=== PATIENT | male | born 1950 | race Asian ===

== ENCOUNTER → 2019-05-24 | Outpatient (CLI) | payer MEDICARE ==
[2019-05-24 12:35] LABS: MEAN CORP HGB 30.5 pg (26-34); RED CELL DISTRIBUTION WIDTH 13.6 % (11.5-14.5)
[2019-05-24 13:02] LABS: ALANINE AMINOTRANSFERASE(ML) 18 U/L (12-78); ALKALINE PHOSPHATASE 87 U/L (50-136); ASPARTATE AMINO TRANSFERASE 17 U/L (0-35); CALCIUM 8.4 mg/dL (8.4-10.5); CARBON DIOXIDE 28.7 mmol/L (20.0-32); CHOLESTEROL 155 mg/dL (120-240); GLUCOSE 100 mg/dL (70-110); HDL CHOLESTEROL 47 mg/dL (32-96)
== END | disposition home or self-care (01) ==
LOC: LAB 12:15
PROVIDERS: ATTEND Specialist
DX: E78.5 Hyperlipidemia, unspecified (principal); E55.9 Vitamin D deficiency, unspecified
CPT/HCPCS: 36415; 80053; 80061; 82306; 84403; 84443; 85027; 86140

== ENCOUNTER 2024-09-24 16:43 | Observation (INO) | payer MEDICARE ==
[~2024-09-24] VITALS: Ht 167.6 cm; Wt 93.4 kg
[2024-09-24] VITALS (27 sets, daily range): BP systolic 78–141; BP diastolic 35–82; PULSE 51–90; RESP 10–71; TEMP 97–98.6; O2SAT 94–98
[2024-09-24] MEDS ORDERED: NITRO-DUR 0.2MG PATCH TD ONE (16:47)
[2024-09-24] MEDS ORDERED: RANEXA PO ONE (16:47)
[2024-09-24] MEDS ORDERED: ASPIRIN ONE (16:47)
[2024-09-24] MEDS ORDERED: NS 1000ML 1,000 ML ONE (16:51)
[2024-09-24] MEDS ORDERED: COREG ONE (16:51)
[2024-09-24] MEDS: ASPIRIN PO STA (16:55)
[2024-09-24] MEDS: NS 1000ML 1,000 ML IV STA (16:55)
[2024-09-24] MEDS: COREG PO STA (16:57)
[2024-09-24] MEDS: NITRO-DUR 0.2MG PATCH TD STA (16:59)
[2024-09-24] MEDS: RANEXA PO STA (17:00)
[2024-09-24] MEDS: PROTONIX IV IV STA (17:01)
[2024-09-24] MEDS ORDERED: NITROGLYCERIN 25MG/D5W 250ML 250 ML IV ONE (17:06)
[2024-09-24] MEDS ORDERED: HEPARIN ONE ×2 (17:06→17:35)
[2024-09-24] MEDS ORDERED: SUBLIMAZE 100MCG/2ML ONE (17:17)
[2024-09-24] MEDS ORDERED: VERSED ONE ×2 (17:18→18:02)
[2024-09-24] MEDS ORDERED: BRILINTA ONE (17:37)
[2024-09-24] MEDS ORDERED: ADENOSINE IV ONE (18:03)
[2024-09-24] MEDS: NS 1000ML/KCL 20MEQ 1,000 ML IV SCH (19:30)
[2024-09-24] MEDS ORDERED: NITROSTAT SL PRN (19:30)
[2024-09-24] MEDS ORDERED: ATIVAN IV PRN (19:30)
[2024-09-24] MEDS: RANEXA PO SCH (21:00)
[2024-09-24] MEDS: BRILINTA PO SCH (21:00)
[2024-09-24] MEDS: COREG PO SCH (21:00)
[2024-09-24] MEDS: CRESTOR PO SCH (21:00)
[2024-09-24] MEDS: NS 500ML 500 ML IV ONE (22:22)
[2024-09-24] MEDS: OFIRMEV 100 ML IV PRN (22:27)
[2024-09-25] VITALS (59 sets, daily range): BP systolic 71–137; BP diastolic 29–65; PULSE 46–69; RESP 10–21; TEMP 97.5–98; O2SAT 94–99
[2024-09-25] MEDS: NS 500ML 500 ML IV ONE (01:30)
[2024-09-25 01:49] LABS: BASOPHIL % 0.4 % (0.2-1.2); EOSINOPHIL # 0.2 10^3/uL (0.0-0.2); EOSINOPHIL % 4.3 % (0.0-5.0); HEMATOCRIT(ML) 33.4 % (37.0-53.0); LYMPHOCYTES # 2.49 10^3/uL1 (1.0-4.8); LYMPHOCYTES % 44.5 % (24.0-44.0); MEAN CORP HGB 30.2 pg (26-34); MEAN CORP HGB CONCENTRATION 34.4 g/dL (33-36.5); MEAN CORP VOLUME 87.7 fL (78-100); MONOCYTES # 0.7 10^3/uL (0.3-0.8); MONOCYTES % 11.8 % (5.0-12.0); NEUTROPHIL # 2.2 10^3/uL (1.8-7.7); PLATELET COUNT 199 10^3/uL (150-400); RED BLOOD CELL 3.81 10^6/uL (4.50-5.90); RED CELL DISTRIBUTION WIDTH 13.5 % (11.5-14.5); WHITE BLOOD CELL 5.6 10^3/uL (4.5-11.0)
[2024-09-25 01:56] LABS: +ADD MANUAL DIFF(NO CHRG) NO; HEMOGLOBIN 11.5 g/dL (13.9-16.3)
[2024-09-25 01:58] LABS: ALBUMIN(ML) 2.7 g/dL (3.4-5.0); ALBUMIN/GLOBULIN RATIO 0.964; ANION GAP 9.9; BUN/CREATININE RATIO 12.87 (10.0-20.0); CALCIUM 7.4 mg/dL (8.4-10.5); CARBON DIOXIDE 26.4 mmol/L (20.0-32); CREATININE SERUM 1.01 mg/dL (0.59-1.40); EST GFR, NON-AA 72.4 (>/=60); POTASSIUM 4.3 mmol/L (3.6-5.2)
[2024-09-25] MEDS: PROTONIX PO SCH (09:08)
[2024-09-25] MEDS: ASPIRIN EC PO SCH (09:08)
[2024-09-25 09:23] LABS: +ADD MANUAL DIFF(NO CHRG) NO; BASOPHIL % 0.4 % (0.2-1.2); EOSINOPHIL # 0.2 10^3/uL (0.0-0.2); EOSINOPHIL % 3.7 % (0.0-5.0); HEMATOCRIT(ML) 38.7 % (37.0-53.0); HEMOGLOBIN 13.2 g/dL (13.9-16.3); LYMPHOCYTES # 1.28 10^3/uL1 (1.0-4.8); LYMPHOCYTES % 24.6 % (24.0-44.0); MEAN CORP HGB 29.9 pg (26-34); MEAN CORP HGB CONCENTRATION 34.1 g/dL (33-36.5); MEAN CORP VOLUME 87.6 fL (78-100); MONOCYTES # 0.7 10^3/uL (0.3-0.8); MONOCYTES % 12.7 % (5.0-12.0); NEUTROPHILS % 58.4 % (41.0-85.0); PLATELET COUNT 223 10^3/uL (150-400); RED BLOOD CELL 4.42 10^6/uL (4.50-5.90); RED CELL DISTRIBUTION WIDTH 13.4 % (11.5-14.5); WHITE BLOOD CELL 5.2 10^3/uL (4.5-11.0)
[2024-09-25 09:43] LABS: ALBUMIN(ML) 3.4 g/dL (3.4-5.0); ALBUMIN/GLOBULIN RATIO 1.133; ANION GAP 9.2; BUN/CREATININE RATIO 10.41 (10.0-20.0); CARBON DIOXIDE 26.7 mmol/L (20.0-32); CREATININE SERUM 0.96 mg/dL (0.59-1.40); EST GFR, NON-AA 76.8 (>/=60); POTASSIUM 3.9 mmol/L (3.6-5.2)
[2024-09-25] MEDS ORDERED: XYLOCAINE ONE (10:32)
[2024-09-25] MEDS ORDERED: VERSED ONE (10:32)
[2024-09-25] MEDS ORDERED: SUBLIMAZE 100MCG/2ML ONE (10:32)
[2024-09-25] MEDS ORDERED: NS 250ML 250 ML ONE (11:22)
[2024-09-25] MEDS ORDERED: TICA90TA PO (14:49)
[2024-09-25] MEDS ORDERED: Rosuvastatin Calcium PO (14:49)
[2024-09-25] MEDS ORDERED: NITR0.4T SL (14:49)
[2024-09-25] MEDS ORDERED: CEFA500C PO (14:49)
[2024-09-25] MEDS ORDERED: RANO500T6 PO (14:49)
[2024-09-25] MEDS ORDERED: PANT40TA6 PO (14:49)
[2024-09-25] MEDS ORDERED: ASPI-1007 PO (14:49)
[2024-09-25] MEDS ORDERED: APIX5TAB PO (14:49)
== END 2024-09-25 16:20 | disposition home or self-care (01) ==
LOC: ER 16:43 → SDC 17:16 → ICU 18:49 → OBSVTOIN 18:49 → UNDOADMOB 18:49 → ICU 18:49 → INTOOBSV 18:49 → ICU 19:00
PROVIDERS: ADMIT Specialist; ATTEND Specialist
DX: I21.4 Non-ST elevation (NSTEMI) myocardial infarction (principal); R07.89 Other chest pain; I48.0 Paroxysmal atrial fibrillation; D64.9 Anemia, unspecified; I25.10 Atherosclerotic heart disease of native coronary artery without angina pectoris; I95.9 Hypotension, unspecified; Z98.890 Other specified postprocedural states; Z79.899 Other long term (current) drug therapy; E78.5 Hyperlipidemia, unspecified; E66.9 Obesity, unspecified; G47.33 Obstructive sleep apnea (adult) (pediatric); R07.9 Chest pain, unspecified; R06.02 Shortness of breath
CPT/HCPCS: 99291; 96365; 96366 ×2; 96375; 78451 ×2; 93306; 93458; 93005 ×2; 99153; 99152 ×2; 76937; 92978; 92979; 93017; 80053; 85025; 36415; 83880; 33285; G0378 ×2; J7030; J1644 ×2; C1894; A6258 ×2; C1769 ×3; C1887; J3490; J0131 ×2; J8499; J0153; J2250 ×2; J3010 ×2; J2785; C9601; C9600; A9500 ×2; A4618; C1725; E0617; C1874 ×3; C1766; C1753; Q9967 ×2; J7050; J7040; A4649; C1764

== ENCOUNTER → 2024-09-24 | Outpatient (CLI) | payer MEDICARE ==
[~2024-09-24] MED LIST: APIX5TAB PO; ASPI-1007 PO; CEFA500C PO; NITR0.4T SL; PANT40TA6 PO; RANO500T6 PO; Rosuvastatin Calcium PO; TICA90TA PO
[2024-09-24 15:51] LABS: BASOPHIL % 0.6 % (0.2-1.2); EOSINOPHIL # 0.3 10^3/uL (0.0-0.2); EOSINOPHIL % 4.8 % (0.0-5.0); HEMATOCRIT(ML) 42.1 % (37.0-53.0); HEMOGLOBIN 14.4 g/dL (13.9-16.3); LYMPHOCYTES % 42.7 % (24.0-44.0); MEAN CORP HGB 29.9 pg (26-34); MEAN CORP HGB CONCENTRATION 34.2 g/dL (33-36.5); MEAN CORP VOLUME 87.3 fL (78-100); MONOCYTES # 0.6 10^3/uL (0.3-0.8); MONOCYTES % 10.6 % (5.0-12.0); NEUTROPHIL # 2.2 10^3/uL (1.8-7.7); NEUTROPHILS % 41.3 % (41.0-85.0); PLATELET COUNT 255 10^3/uL (150-400); RED BLOOD CELL 4.82 10^6/uL (4.50-5.90); RED CELL DISTRIBUTION WIDTH 13.3 % (11.5-14.5); WHITE BLOOD CELL 5.4 10^3/uL (4.5-11.0)
[2024-09-24 15:59] LABS: +ADD MANUAL DIFF(NO CHRG) NO
[2024-09-24 16:14] LABS: ALANINE AMINOTRANSFERASE(ML) 21 U/L (12-78); ALBUMIN/GLOBULIN RATIO 1.142; ALKALINE PHOSPHATASE 71 U/L (50-136); ANION GAP 11.5; ASPARTATE AMINO TRANSFERASE 26 U/L (0-35); CALCIUM 8.8 mg/dL (8.4-10.5); CARBON DIOXIDE 26.5 mmol/L (20.0-32); CHOLESTEROL 166 mg/dL (120-240); EST GFR, NON-AA 82.7 (>/=60); GLUCOSE 89 mg/dL (74-106); HDL CHOLESTEROL 49 mg/dL (32-96); LDL/HDL RATIO 1.9; SODIUM 134 mmol/L (132-145)
[2024-09-24 16:15] LABS: C-REACTIVE PROTEIN < 0.05 mg/dL (0.00-5.00)
[2024-09-24 16:17] LABS: TROPONIN I HIGH SENSITIVITY 1116 ng/L (0-75)
== END | disposition home or self-care (01) ==
LOC: LAB 15:06
PROVIDERS: ATTEND Specialist
DX: R07.89 Other chest pain (principal); R06.02 Shortness of breath; G47.33 Obstructive sleep apnea (adult) (pediatric); E78.49 Other hyperlipidemia; E66.9 Obesity, unspecified; Z79.899 Other long term (current) drug therapy
CPT/HCPCS: 36415; 80053; 80061; 83036; 83880; 84439; 84443; 84484; 85025; 86140